=== PATIENT | male | born 1965 | race Caucasian/White ===

== ENCOUNTER 2021-05-01 05:37 | Outpatient (CLI) | payer OTHER ==
[~2021-05-01] VITALS: Ht 185.5 cm; Wt 116.8 kg
[2021-05-01] MEDS ORDERED: HYDR-3820 PO (13:08)
[2021-05-01] MEDS ORDERED: META800T PO (13:08)
[2021-05-01] MEDS ORDERED: RT-ALBUINH IH (13:08)
[2021-05-01] MEDS ORDERED: FLT11013 IH (13:08)
[2021-05-01] MEDS ORDERED: DICL75TA2 PO (13:08)
== END 2021-05-01 14:50 | disposition home or self-care (01) ==
LOC: PREOP 05:37
PROVIDERS: ATTEND Surgery
DX: Z01.818 Encounter for other preprocedural examination (principal)

== ENCOUNTER 2021-05-08 07:00 | Day surgery (SDC) | payer OTHER ==
[~2021-05-08] VITALS: Ht 185.5 cm; Wt 116.8 kg
[2021-05-08] VITALS (7 sets, daily range): BP systolic 105–154; BP diastolic 69–98
[~2021-05-08 07:00] MED LIST: DICL75TA2 PO; FLT11013 IH; HYDR-3820 PO; META800T PO; RT-ALBUINH IH
[2021-05-08] MEDS ORDERED: LACTATED RINGERS 1,000 ML IV STA (07:01)
[2021-05-08] MEDS ORDERED: LACTATED RINGERS 1,000 ML IV ONE (07:07)
[2021-05-08] MEDS ORDERED: MIDAZOLAM 2 MG/2 ML (VERSED) VIAL ONE (07:17)
[2021-05-08] MEDS ORDERED: PROPOFOL INJECTION 50 ML IV ONE (07:17)
--- NOTE | 2021-05-08 08:38 | Progress Note-Post Operative ---
Post-Operative Progess Note Surgeon (s)/Ophthalmic Technician Apprentice (s) Surgeon ROGELIO MERA DO Ophthalmic Technician Apprentice: Justo Pretty, SHAUNII Pre-Operative Diagnosis Screening colon, Family hx of colon CA Post-Operative Diagnosis Polyp diverticula int hemorrhoids Procedure & Operative Findings Date of Procedure 05/08/21 Procedure Performed/Findings Colon with Cold bx PROCEDURE NOTE: After informed consent was obtained, the patient was brought to the endoscopy suite, placed in bed in left lateral decubitus position. He was administered IV sedation by the JOURNEYMAN MACHINIST who then monitored his vitals the entire time, heart rate, blood pressure and pulse ox and the scope was inserted. Pushed all the way to about 140 cm and pushed into the cecum, took a picture of appendiceal orifice and noted the ileo-cecal valve. On the way in noted diverticula and took a picture of them. Started slowly withdrawing the scope insufflating to look circumferentially at the florentino starting in the cecum, up the ascending colon to the hepatic flexure, then down the transverse colon, splenic flexure, into the descending colon down in the sigmoid and then i nto the rectum. Saw small flat polyp and took a picture and then did a cold biopsy of it. In the rectal vault I retroflexed the scope. Took picture of the internal hemorrhoids. The patient tolerated the procedure. He was recovered in endoscopy suite. Anesthesia Type IV sedation by JOURNEYMAN MACHINIST Estimated Blood Loss Estimated blood loss (mL): scant Specimens/Packing Specimens Removed rectal polyp ROGELIO MERA DO May 08, 2021 08:38
--- NOTE | 2021-05-08 08:39 | Endoscopy Discharge Instruct ---
Endo Procedure/Findings Findings 1.: Polyp 2.: Diverticulosis 3.: Internal Hemorrhoids Discharge Instructions - Activity: You might feel a little sleepy until tomorrow. This is due to the medicine you received to relax you. Until tomorrow, you should: NOT drive a car, operate machinery or power tools. NOT drink any alcoholic beverages. NOT make any important decisions or sign importortant papers. Do not return to work until tomorrow, unless otherwise instructed. Resume previous activities tomorrow. Diet: Start by taking liquids. If you tolerate liquids, advance to solid food. 1.: Colonscopy in 5 years Notify Physician - If you experience excessive bleeding, unusual abdominal pain, fever, or chest pain, contact your doctor immediately. ROGELIO MERA DO May 08, 2021 08:39
--- NOTE | 2021-05-08 12:49 | Anesthesia-General Post-Op ---
MAC Patient Condition Mental Status/LOC: Same as Preop Cardiovascular: Satisfactory Nausea/Vomiting: Absent Respiratory: Satisfactory Pain: Controlled Complications: Absent Post Op Complications Complications None Follow Up Care/Instructions Patient Instructions None needed. Anesthesiology Discharge Order Discharge Order Patient is doing well, no complaints, stable vital signs, no apparent adverse anesthesia problems. No complications reported per nursing. LALA FLORES CRNA May 08, 2021 12:49
== END 2021-05-08 09:50 | disposition home or self-care (01) ==
LOC: ENDO 07:00
PROVIDERS: ATTEND Surgery
DX: Z12.11 Encounter for screening for malignant neoplasm of colon (principal); K62.1 Rectal polyp; Z80.0 Family history of malignant neoplasm of digestive organs; K57.90 Diverticulosis of intestine, part unspecified, without perforation or abscess without bleeding; K64.8 Other hemorrhoids; E78.5 Hyperlipidemia, unspecified; Z87.891 Personal history of nicotine dependence; Z79.899 Other long term (current) drug therapy

== ENCOUNTER 2021-12-19 16:15 | Inpatient (IN) | payer OTHER ==
[~2021-12-19] VITALS: Ht 185 cm; Wt 118.2 kg
[~2021-12-19 16:15] MED LIST changes: -AMOX1TAB12 PO; -ASPI-1238 PO; -CATHETER FLUSH 10 ML SYR IV PRN; -CETI10TA17 PO; -FUROSEMIDE 40 MG/4 ML INJ (LASIX) IV STA; -HOLD METFORMIN - RECEIVED CONTRAST 20 ML VIAL IV SCH; -IOHEXOL 350 MG/ML 100 ML (OMNIPAQUE 350) VIAL IV ONE; -LACT1CAP62 PO; -MULT-1061 PO; -NS 100 ML (IVPB) BAG IV ONE; -PANT40TA2 PO; -PANTOPRAZOLE 40 MG (PROTONIX) VIAL IV SCH; -PIPERACILLIN SODIUM/TAZOBACTAM 4.5 GM in NS (IVPB) 100 ML IV SCH; -PROPOFOL DRIP (ICU) 100 ML IV SCH; -ROCURONIUM 10 MG/ML 5 ML SYRINGE IV ONE; -fentaNYL DRIP PRE-MIX 250 ML IV SCH; -fentaNYL INJ 100 MCG/2 ML AMP IV ONE; -fentaNYL INJ 100 MCG/2 ML AMP IVP PRN; -inSUlin ASPART (NovoLOG) 1 UNIT/0.01 ML (CHARGE PER UNIT) SC SCH
[2021-12-19] MEDS ORDERED: PROPOFOL DRIP (ICU) 100 ML IV ONE (16:30)
[2021-12-19] MEDS ORDERED: ONDANSETRON 4 MG (ZOFRAN) ORAL DISSOLVE TAB PO PRN (16:45)
[2021-12-19] MEDS ORDERED: ANTACID SUSP 30 ML UDC (MYLANTA) PO PRN (16:45)
[2021-12-19] MEDS ORDERED: MELATONIN 3 MG TABLET PO PRN (16:45)
[2021-12-19] MEDS ORDERED: ACETAMINOPHEN 325 MG TABLET PO PRN (16:45)
[2021-12-19] MEDS ORDERED: ONDANSETRON 4 MG/2 ML (SDV) Z0FRAN IV PRN (16:45)
[2021-12-19] MEDS ORDERED: diphenhydrAMINE 25 MG TAB (BENADRYL) PO PRN (16:45)
[2021-12-19] MEDS ORDERED: polyethylene glycoL POWDER 17 GM (MIRALAX) PACK PO PRN (16:45)
[2021-12-19 16:46] VITALS: BP 103/67
--- NOTE | 2021-12-19 16:57 | Tele-ICU Consult ---
History of Present Illness History of Present Illness Date Seen by Provider: December 19, 2021 Time Seen by Provider: 16:56 Date of Admission (Tele-ICU Physician , consultation) Available chart/ vitals / labs / Images reviewed H&P is from ER notes Patient's information available about PMH, Shx, Fhx allergy reviewed in EMR. ROS as per chart and RN report Now in ICU, hemodynamically stable Video assessment done using teleICU camera, rest of exam as per RN Discussed with RN. Consultants: Hospital course: 56 y/o male with hypoxic episodes post achilles tendon repair at [facility] , unable to extubate - tranferred to [facility] A/P Acute resp failure , post op, - as per report , No hypoxia during anesthesia or surgery--postop difficulty with weaning to extubation with hypoxia ->> TX for bronchospasm , given epinephrine multiple doses, received 3L NS ( no hypotension reported ) - no aspiration reported by ER ( from report inn Sx center , but possible by CT finding - VO /pulm edema is other considerations ( trop negative , no hypotension - but was given epi - No PE on CT - cont full vent support , lasix given , starting abx - follow -AC 500-18 - 80% peep 10 PAP 22 s/p right Achilles tendon repair Leukocytosis - given very dence infiltrates with bronchogtramm will start empiric abx , sputum cx hyperglycemia - follow with ISS STEPHEN difficulty after anesthesia previously - prolonged time with waking up Mediastinal lymphadenopathy - f/up as oupt as per PCP Lines : pwriph (Central Line Necessity Reviewed) [place]: + OG: + Nutrition: npo Analgesia: fent prn Anxiety/ delirium VTE Prophylaxis: post op , tita if ok with sx Stress Ulcer Prophylaxis: ppi Plans in collaboration with bedside consultants and IM MDs. Discussed with RN to reach out if any questions or concerns A total of 35 minutes of critical care time was devoted to this patient today, required to treat and/or prevent further deterioration of critical care condition ( as above ) . Allergies and Home Medications Allergies Coded Allergies: No Known Drug Allergies (Unverified , 05/08/21) Home Medications Albuterol Sulfate 1 Puff Puff, 2 PUFF IH Q4H, (Reported) 1 PUFF = 90 MCG Diclofenac Sodium 75 Mg Tablet.dr, 75 MG PO DAILY, (Reported) Fluticasone Propionate 1 Ea Aero, 1 EA IH DAILY, (Reported) Hydrocodone/Acetaminophen 1 Each Tablet, 1 EACH PO Q6H PRN for PAIN-MODERATE (5- 7), (Reported) Metaxalone 800 Mg Tablet, 800 MG PO DAILY, (Reported) Past Medical/Social/Family Hx Current Status Primary Language: Tuvaluan Review of Systems Constitutional: see HPI Focused Exam Height, Weight, BMI Height: '" Weight: lbs. oz. kg; 35.00 BMI Method: Exam Exam Patient acknowledged, consented, and participated in this virtual visit which was conducted using real time audio/video Vital Signs Date Time Temp Pulse Resp B/P (MAP) Pulse Ox O2 Delivery O2 Flow Rate FiO2 12/19/21 16:46 35.6 107 88 100 Height & Weight Height: '" Weight: lbs. oz. kg; 35.00 BMI Method: General Appearance: No Apparent Distress Assessment/Plan Assessment/Plan . OLY CORTES MD December 19, 2021 16:57
[2021-12-19] MEDS ORDERED: fentaNYL DRIP PRE-MIX 250 ML IV SCH (17:00)
[2021-12-19] MEDS ORDERED: RT-ALBUTEROL/IPRATROPIUM 3 ML (DUONEB) VIAL INH PRN (17:00)
[2021-12-19] MEDS: PROPOFOL DRIP (ICU) 100 ML IV SCH ×2 (17:13→20:31)
[2021-12-19] MEDS ORDERED: PIPERACILLIN SODIUM/TAZOBACTAM 4.5 GM in NS (IVPB) 100 ML IV ONE (17:15)
--- NOTE | 2021-12-19 18:48 | Progress Note ---
Progress Note Ramón Deleon is a 56 year old male admitted after an Achilles repair surgery with Dr. Seth due to acute hypoxic respiratory failure. He was intubated for the procedure and unable to be extubated afterward. He underwent a CT chest which showed no PE but did show bilateral consolidation concerning for aspiration. He will be admitted to the ICU on the ventilator. He has been started on Zosyn. He was also given a dose of Lasix with concern for volume overload. TeleICU has be en consulted. He had a negative COVID and flu test. Due to myself, the physician, testing positive for COVID, I am unable to see the patient within the 12 hour window recommended for ICU patients. His case was discussed with the other hospitalists, Drs. Flores and Richy, and one of them will assume care. ANNETTE ZARAGOZA MD December 19, 2021 18:48
[2021-12-19] MEDS: ENOXAPARIN 40 MG/0.4 ML (LOVENOX) SYR SQ SCH (19:01)
[2021-12-19 19:13] LABS: ABG BASE EXCESS -4.9 MMOL/L (-2.5-2.5); ABG OXYGEN SATURATION 99 % (94-100); ABG PCO2 41 MMHG (35-45); ABG PO2 212 MMHG (79-93); ABG TCO2 21.5 MMOL/L (21.0-31.0); PATIENT TEMP 36.1; VENTILATOR YES
[2021-12-19 19:16] LABS: ABG PH 7.31 (7.37-7.43)
[2021-12-19] MEDS: RT-ALBUTEROL/IPRATROPIUM 3 ML (DUONEB) VIAL INH SCH ×2 (19:25→22:11)
[2021-12-19 19:26] VITALS: BP 98/72
[2021-12-19 22:12] VITALS: BP 86/57
[2021-12-20] MEDS: PIPERACILLIN SODIUM/TAZOBACTAM 4.5 GM in NS (IVPB) 100 ML IV SCH ×3 (00:18→16:16)
[2021-12-20] MEDS: PROPOFOL DRIP (ICU) 100 ML IV SCH ×3 (00:51→08:39)
[2021-12-20 02:03] VITALS: BP 79/52
[2021-12-20] MEDS: RT-ALBUTEROL/IPRATROPIUM 3 ML (DUONEB) VIAL INH SCH ×6 (02:03→23:00)
[2021-12-20 04:43] LABS: BASOPHILS % (AUTO) 0 % (0-10); EOSINOPHILS % (AUTO) 0 % (0-10); HEMATOCRIT 47 % (40-54); LYMPHOCYTES # (AUTO) 0.7 10^3/uL (1.0-4.0); LYMPHOCYTES % (AUTO) 6 % (12-44); MEAN CORPUSCULAR HEMOGLOBIN 32 pg (25-34); MEAN CORPUSCULAR HGB CONC 34 g/dL (32-36); MEAN CORPUSCULAR VOLUME 93 fL (80-99); MEAN PLATELET VOLUME 10.4 fL (9.0-12.2); MONOCYTES # (AUTO) 0.9 10^3/uL (0.0-1.0); MONOCYTES % (AUTO) 8 % (0-12); NEUTROPHILS # (AUTO) 10.4 10^3/uL (1.8-7.8); NEUTROPHILS % (AUTO) 85 % (42-75); PLATELET COUNT 208 10^3/uL (130-400); WHITE BLOOD COUNT 12.3 10^3/uL (4.3-11.0)
[2021-12-20 05:03] LABS: POTASSIUM 4.5 MMOL/L (3.6-5.0)
[2021-12-20 05:04] LABS: CALCIUM 8.3 MG/DL (8.5-10.1)
[2021-12-20 05:08] LABS: CREATININE SERUM 1.47 MG/DL (0.60-1.30); PHOSPHORUS 4.1 MG/DL (2.3-4.7)
[2021-12-20 05:11] LABS: MAGNESIUM 1.7 MG/DL (1.6-2.4)
[2021-12-20] MEDS ORDERED: MAGNESIUM 1 GM/100 ML IVPB 200 ML IV ONE (05:34)
[2021-12-20 05:39] LABS: ABG BASE EXCESS -4.2 MMOL/L (-2.5-2.5); ABG OXYGEN SATURATION 95 % (94-100); ABG PCO2 38 MMHG (35-45); ABG PH 7.35 (7.37-7.43); ABG PO2 80 MMHG (79-93); ABG TCO2 21.6 MMOL/L (21.0-31.0)
[2021-12-20] MEDS: MAGNESIUM 1 GM/100 ML IVPB 100 ML IV SCH (05:39)
[2021-12-20 05:40] LABS: ALLENS TEST POSITIVE; INSPIRED O2 45%; PATIENT TEMP 36.8; VENTILATOR YES
--- NOTE | 2021-12-20 05:41 | History & Physical-Hospitalist ---
History of Present Illness HPI/Chief Complaint CC: Respiratory failure status post Achilles tendon repair at [facility] in [place] HPI: This is a 56 yr old male. He presented following an Achilles tendon repair at [facility]. He ultimately required intubation. At this current time his PEAK is at 10, FiO2 is 50%. We are proceeding towards extubation. Overall he seems to be stable and improving. Once extubation is successful. We will initiate a regular diet. Source: RN/MD, old records Exam Limitations: clinical condition (Intubated) Date Seen 12/20/21 Time Seen by a Provider: 09:30 Attending Physician Jason Drake DO PCP Admitting Physician: Chloe Tom MD Attending Physician: Chloe Tom MD Referring Physician Date of Admission December 19, 2021 at 16:15 Home Medications & Allergies Home Medications Reviewed patient Home Medication Reconciliation performed by pharmacy medication reconciliations motion study technician and/or nursing. Patients Allergies have been reviewed. Allergies Allergies Coded Allergies No Known Drug Allergies (Rzfmilcmrs18/11/21) Past Zlmigrw-Qnqjjy-Voqfju Hx Patient Social History Tobacco Use?: No Smoking Status: Former Smoker Smokeless type used: Chew Smokeless Tobacco Frequency: Current Everyday User Use of E-Cig and/or Vaping dev: No Substance use?: No Alcohol Use?: Yes Alcohol type: Beer Alcohol Frequency: Couple times a week Pt feels they are or have been: No Immunizations Up To Date Tetanus Booster (TDap): Unknown Hepatitis A: No Hepatitis B: No Seasonal Allergies Seasonal Allergies: No Current Status Advance Directives: No Primary Language: Hong Konger Preferred Spoken Language: Hong Konger Is interpretation needed?: No Sensory deficits: Vision impairment Past Medical History Surgeries: Orthopedic Pneumonia High Cholesterol Traumatic Brain Injury Polyps, Hiatal Hernia Arthritis Blood Disorders: No Adverse Reaction/Blood Tranf: No Family Medical History Colon cancer Review of Systems ROS-Unable to Obtain: Intubated Constitutional: see HPI Physical Exam Physical Exam Vital Signs Vital Signs - First Documented 12/19/21 12/19/21 15:45 16:46 Temp 36.0 Pulse 103 Resp 22 B/P (MAP) 135/96 Pulse Ox 93 O2 Delivery Mechanical Ventilator O2 Flow Rate 80.00 FiO2 100 Capillary Refill : Height, Weight, BMI Height: '" Weight: lbs. oz. kg; 33.92 BMI Method: General Appearance: No Apparent Distress, Chronically ill, Obese, Other (I ntubated) Respiratory: Lungs Clear, Normal Breath Sounds Cardiovascular: Regular Rate, Rhythm Neurologic/Psychiatric: Alert, Oriented x3 Results Results/Procedures Labs Laboratory Tests 12/20/21 04:35 Patient resulted labs reviewed. Assessment/Plan Admission Diagnosis Assessment: Acute respiratory failure following Achilles tendon procedure Obesity BMI 34 Suspect STEPHEN Hypertension Hyperlipidemia Plan: Extubation Supportive care Admission Status: Inpatient Order (span 2 midnights) Reason for Inpatient Admission: Intubation Diagnosis/Problems Diagnosis/Problems (1) Acute respiratory failure with hypoxia HANNAH KENNEDY DO December 20, 2021 05:41
[2021-12-20] MEDS ORDERED: POTASSIUM CL 10MEQ/50ML IVPB 50 ML IV SCH (06:00)
[2021-12-20] MEDS ORDERED: KCL 20 MEQ TAB (K-DUR) PO SCH (06:00)
[2021-12-20] MEDS ORDERED: MAGNESIUM 1 GM/100 ML IVPB 100 ML IV SCH (06:00)
[2021-12-20 07:06] VITALS: BP 79/44
--- NOTE | 2021-12-20 07:37 | Diagnostic Imaging Report ---
Indication: Respiratory failure. COMPARISON: 12/19/2021 FINDINGS: Single frontal radiograph view the chest was obtained and demonstrates indwelling endotracheal tube with tip at the clavicular heads. Gastric tube is also seen with tip in the left upper abdominal quadrant, presumably within the lumen stomach. Cardiac silhouette and pulmonary vasculature are within normal limits. Lungs show somewhat low inspiratory volumes, but are otherwise clear. There is no focal consolidation, large effusion, no pneumothorax. Osseous structures show no gross acute abnormalities. IMPRESSION: 1. Marked overall interval improved aeration. 2. Lines and tubes as above. Dictated by: Dictated on workstation # [id number]
[2021-12-20] MEDS: PANTOPRAZOLE 40 MG (PROTONIX) VIAL IV SCH ×2 (08:40→09:38)
[2021-12-20] MEDS ORDERED: D5 1/2 NS 1000 ML IV SOLUTION 1,000 ML IV SCH (09:00)
[2021-12-20] MEDS ORDERED: DexMEDEtomidine 250 ML DRIP 250 ML IV SCH (09:00)
--- NOTE | 2021-12-20 09:02 | Tele-ICU Progress Note ---
Subjective Date Seen by a Provider: December 20, 2021 Time Seen by a Provider: 09:02 Subjective/Events-last exam (Tele-ICU Physician , Progress Note ) Available chart/ vitals / labs / Images reviewed Video assessment done using teleICU camera, rest of exam as per RN Discussed with RN , EXAM PER RN Events overnight : Afebrile FiO2 - 50% I/O = Drips: Pressors: , hemodynamically stable V E N T Sedation gtt: fent 100 , propofol 50 ( RASS ) VENT SETTINGS and ABG reviewed candidate for SBT today REVIEWED Cardiovascular Stability / Sedation Score / FI02/PEEP / ABG / CXR Consultants: Hospital course: 12/19 56 y/o male with hypoxic episodes post achilles tendon repair at [facility] , unable to extubate - tranferred to hospital 12/20 -AC 500-18 - 50% peep 10 PAP 23 A/P Acute resp failure , post op, - as per report , No hypoxia during anesthesia or surgery--postop difficulty with weaning to extubation with hypoxia ->> TX for bronchospasm , given epinephrine multiple doses, received 3L NS ( no hypotension reported ) - VO /pulm edema is other considerations ( trop negative , no hypotension - but was given epi - No PE on CT -- no aspiration reported by ER ( from report inn Sx center , but possible by CT finding - cont full vent support , lasix given , starting abx - follow -AC 500-18 - 50% peep 10 PAP 23 - WILL ASSESS FOR EXTUBATION, CXR IMPROVED, RESPONDED TO LASIX , ECHO PENDING -ADD PRECEDEX S/p right Achilles tendon repair 12/19 Leukocytosis - given very dence infiltrates with bronchogtramm will start empiric abx , sputum cx JOSE L - mild , monitor , add maintance IVF hyperglycemia - follow with ISS STEPHEN difficulty after anesthesia previously - prolonged time with waking up Mediastinal lymphadenopathy - f/up as oupt as per PCP Lines : pwriph (Central Line Necessity Reviewed) [place]: + OG: + Nutrition: npo Analgesia: fent prn Anxiety/ delirium VTE Prophylaxis: post op , tita if ok with sx Stress Ulcer Prophylaxis: ppi Plans in collaboration with bedside consultants and IM MDs. Discussed with RN to reach out if any questions or concerns A total of 35 minutes of critical care time was devoted to this patient today, required to treat and/or prevent further deterioration of critical care condition ( as above ) . Sepsis Event Evaluation Height, Weight, BMI Height: '" Weight: lbs. oz. kg; 34.53 BMI Method: Exam Exam Patient acknowledged, consented, and participated in this virtual visit which was conducted using real time audio/video Vital Signs Date Time Temp Pulse Resp B/P (MAP) Pulse Ox O2 Delivery O2 Flow Rate FiO2 12/20/21 08:39 101 109/70 12/20/21 08:00 101 17 109/70 91 Mechanical Ventilator 50.00 12/20/21 07:29 36.1 12/20/21 07:06 90 19 91 50 12/20/21 07:00 86 12/20/21 07:00 86 17 86/50 90 Mechanical Ventilator 50.00 12/20/21 06:46 106 18 95 12/20/21 06:15 97 21 87/55 91 12/20/21 06:00 103 33 108/75 92 Mechanical Ventilator 50.00 12/20/21 05:45 96 19 117/68 94 12/20/21 05:30 96 17 103/63 90 12/20/21 05:15 103 33 112/67 92 12/20/21 05:00 96 18 99/67 90 Mechanical Ventilator 50.00 12/20/21 04:45 101 17 107/72 91 12/20/21 04:30 100 110/71 90 12/20/21 04:26 98 113/83 12/20/21 04:15 105 17 113/83 92 12/20/21 04:09 92 Mechanical Ventilator 50 12/20/21 04:00 103 16 114/76 94 Mechanical Ventilator 50.00 12/20/21 03:52 35.7 12/20/21 03:45 90 17 96/62 94 12/20/21 03:30 89 18 82/59 94 12/20/21 03:15 87 18 86/53 93 12/20/21 03:00 87 18 79/54 93 Mechanical Ventilator 50.00 12/20/21 02:45 83 17 72/50 93 12/20/21 02:30 85 17 71/46 92 12/20/21 02:15 86 14 84/57 93 12/20/21 02:03 82 18 92 50 12/20/21 02:00 83 17 79/52 92 Mechanical Ventilator 50.00 12/20/21 01:45 84 17 83/54 92 12/20/21 01:30 85 18 88/58 92 12/20/21 01:15 17 102/62 93 12/20/21 01:00 96 18 108/73 94 Mechanical Ventilator 50.00 12/20/21 01:00 96 12/20/21 00:51 93 101/70 12/20/21 00:45 93 18 101/70 93 12/20/21 00:30 93 18 113/79 92 12/20/21 00:15 98 125/94 94 12/20/21 00:00 92 Mechanical Ventilator 50 12/20/21 00:00 97 141/96 97 Mechanical Ventilator 50.00 12/19/21 23:45 80 17 89/61 93 12/19/21 23:36 36.3 12/19/21 23:30 26 87/62 93 12/19/21 23:15 84 13 91/65 93 12/19/21 23:00 82 18 89/64 93 Mechanical Ventilator 50.00 12/19/21 22:45 86 5 99/68 92 12/19/21 22:30 85 18 86/64 93 12/19/21 22:15 82 18 79/57 93 12/19/21 22:12 83 18 92 50 12/19/21 22:00 84 18 86/57 92 Mechanical Ventilator 50.00 12/19/21 21:45 84 18 90/61 92 12/19/21 21:30 88 18 88/64 93 12/19/21 21:22 92 14 94/69 93 12/19/21 21:15 Mechanical Ventilator 50.00 12/19/21 21:00 89 17 81/55 92 Mechanical Ventilator 50.00 12/19/21 20:45 98 13 105/77 93 12/19/21 20:31 90 98/72 12/19/21 20:30 88 17 91/61 94 12/19/21 20:15 89 18 95/64 93 12/19/21 20:00 93 Mechanical Ventilator 50 12/19/21 20:00 97 13 112/78 94 Mechanical Ventilator 50.00 12/19/21 19:45 92 18 108/75 94 12/19/21 19:37 36.4 12/19/21 19:30 Mechanical Ventilator 50.00 12/19/21 19:30 90 17 97/73 94 12/19/21 19:26 90 18 96 80 12/19/21 19:15 86 18 98/72 95 12/19/21 19:00 85 18 93/74 96 Mechanical Ventilator 80.00 12/19/21 19:00 85 12/19/21 18:45 86 18 92/62 95 Mechanical Ventilator 80.00 12/19/21 18:30 87 14 100/67 96 Mechanical Ventilator 80.00 12/19/21 18:15 90 18 98/75 96 Mechanical Ventilator 80.00 12/19/21 18:00 87 17 93/64 95 Mechanical Ventilator 80.00 12/19/21 17:50 Mechanical Ventilator 80 12/19/21 17:45 93 18 85/62 95 Mechanical Ventilator 80.00 12/19/21 17:30 97 14 85/64 95 Mechanical Ventilator 80.00 12/19/21 17:15 97 11 94/67 95 Mechanical Ventilator 80.00 12/19/21 17:13 107 103/67 12/19/21 17:00 98 17 92/70 97 Mechanical Ventilator 80.00 12/19/21 16:46 35.6 107 88 100 12/19/21 16:45 100 17 92/67 98 Mechanical Ventilator 80.00 12/19/21 16:30 101 17 94/66 95 Mechanical Ventilator 80.00 12/19/21 16:15 102 18 94/69 97 Mechanical Ventilator 80.00 12/19/21 16:00 102 17 94/66 96 Mechanical Ventilator 80.00 12/19/21 15:55 103 23 95/68 99 Mechanical Ventilator 80.00 12/19/21 15:46 107 12/19/21 15:45 36.0 103 22 135/96 93 Mechanical Ventilator 80.00 I & O 12/20/21 06:59 Intake Total 400 ml Output Total 3000 ml Balance -2600 ml Height & Weight Height: '" Weight: lbs. oz. kg; 34.53 BMI Method: General Appearance: No Apparent Distress Results Lab Laboratory Tests 12/20/21 04:35 Assessment/Plan Assessment/Plan 1 OLY CORTES MD December 20, 2021 09:02
[2021-12-20] MEDS ORDERED: LORazepam INJ 2 MG/ML (ATIVAN) VIAL IVP NR (09:04)
[2021-12-20 10:46] VITALS: BP 101/65
[2021-12-20] MEDS ORDERED: HYDROcodone/APAP 5 MG/325 MG (LORTAB) TAB PO PRN (12:30)
[2021-12-20] MEDS ORDERED: LACT1CAP62 PO (14:18)
[2021-12-20] MEDS ORDERED: CETI10TA17 PO (14:18)
[2021-12-20] MEDS ORDERED: DICL75TA2 PO (14:18)
[2021-12-20] MEDS ORDERED: MULT-1061 PO (14:18)
[2021-12-20] MEDS: LACTULOSE SYRUP 10GM/15ML (ENULOSE) 30ML UDC PO SCH ×2 (15:15→21:07)
[2021-12-20] MEDS: polyethylene glycoL POWDER 17 GM (MIRALAX) PACK PO SCH ×2 (15:15→21:07)
[2021-12-20] MEDS: SENNA W/DOCUSATE (SENOKOT S) TABLET PO SCH ×2 (15:15→21:07)
[2021-12-20] MEDS ORDERED: ETODOLAC 300 MG (LODINE) CAP PO PRN (15:30)
[2021-12-20] MEDS ORDERED: LORATADINE (CLARITIN) 10 MG TAB PO PRN (15:30)
[2021-12-20] MEDS ORDERED: HYDROmorphone 2 MG/ML VIAL (DILAUDID) IVP PRN (15:30)
[2021-12-20] MEDS: oxyCODONE/APAP 10/325MG (PERCOCET 10) TABLET PO PRN ×2 (16:20→22:04)
[2021-12-20] MEDS ORDERED: LORazepam INJ 2 MG/ML (ATIVAN) VIAL IVP PRN (17:15)
[2021-12-20] MEDS ORDERED: DIAZEPAM 5 MG (VALIUM) TABLET PO PRN (17:15)
[2021-12-20] MEDS ORDERED: LORazepam INJ 2 MG/ML (ATIVAN) VIAL ONE (17:21)
[2021-12-20] MEDS: ENOXAPARIN 40 MG/0.4 ML (LOVENOX) SYR SQ SCH (17:26)
[2021-12-21] MEDS: PIPERACILLIN SODIUM/TAZOBACTAM 4.5 GM in NS (IVPB) 100 ML IV SCH ×2 (00:25→09:25)
[2021-12-21] MEDS: RT-ALBUTEROL/IPRATROPIUM 3 ML (DUONEB) VIAL INH SCH ×3 (03:33→11:35)
[2021-12-21] MEDS: oxyCODONE/APAP 10/325MG (PERCOCET 10) TABLET PO PRN ×2 (03:46→09:46)
--- NOTE | 2021-12-21 06:30 | Progress Note - Hospitalist ---
Subjective HPI/CC On Admission Date Seen by Provider: December 21, 2021 Time Seen by Provider: 11:00 CC: Respiratory failure status post Achilles tendon repair at [facility] in [place] HPI: This is a 56 yr old male. He presented following an Achilles tendon repair at [facility]. He ultimately required intubation. At this current time his PEAK is at 10, FiO2 is 50%. We are proceeding towards extubation. Overall he seems to be stable and improving. Once extubation is successful. We will initiate a regular diet. Objective Exam Vital Signs Vital Signs Date Time Temp Pulse Resp B/P (MAP) Pulse Ox O2 Delivery O2 Flow Rate FiO2 12/21/21 11:15 37.3 86 18 144/74 93 Room Air 12/20/21 11:21 12/20/21 10:46 30 Capillary Refill : Results/Procedures Lab Laboratory Tests 12/21/21 06:45 Patient resulted labs reviewed. Diagnosis/Problems Diagnosis/Problems (1) Acute respiratory failure with hypoxia HANNAH KENNEDY DO December 21, 2021 06:30
[2021-12-21 06:54] LABS: BASOPHILS % (AUTO) 0 % (0-10); EOSINOPHILS # (AUTO) 0.1 10^3/uL (0.0-0.3); EOSINOPHILS % (AUTO) 1 % (0-10); HEMATOCRIT 40 % (40-54); HEMOGLOBIN 13.6 g/dL (13.3-17.7); LYMPHOCYTES # (AUTO) 1.8 10^3/uL (1.0-4.0); LYMPHOCYTES % (AUTO) 19 % (12-44); MEAN CORPUSCULAR HEMOGLOBIN 32 pg (25-34); MEAN CORPUSCULAR HGB CONC 34 g/dL (32-36); MEAN CORPUSCULAR VOLUME 93 fL (80-99); MEAN PLATELET VOLUME 10.3 fL (9.0-12.2); MONOCYTES # (AUTO) 1.2 10^3/uL (0.0-1.0); MONOCYTES % (AUTO) 13 % (0-12); NEUTROPHILS # (AUTO) 6.3 10^3/uL (1.8-7.8); NEUTROPHILS % (AUTO) 66 % (42-75); PLATELET COUNT 162 10^3/uL (130-400); WHITE BLOOD COUNT 9.6 10^3/uL (4.3-11.0)
[2021-12-21] MEDS ORDERED: MULTIVIT W/MINERALS TAB (THERAGRAN M) PO SCH (07:00)
[2021-12-21 07:14] LABS: ALBUMIN 3.6 GM/DL (3.2-4.5); POTASSIUM 3.9 MMOL/L (3.6-5.0)
[2021-12-21 07:15] LABS: CALCIUM 8.2 MG/DL (8.5-10.1)
[2021-12-21 07:17] LABS: TOTAL PROTEIN 5.8 GM/DL (6.4-8.2)
[2021-12-21 07:18] LABS: BILIRUBIN,TOTAL 0.8 MG/DL (0.1-1.0)
[2021-12-21 07:20] LABS: CREATININE SERUM 0.91 MG/DL (0.60-1.30)
--- NOTE | 2021-12-21 07:30 | Diagnostic Imaging Report ---
EXAMINATION: Chest 1 view HISTORY: Hypoxia. Recent extubation. COMPARISON: 12/20/2021. FINDINGS: Interval extubation and removal of the enteric tube. Lung volumes are low. No focal consolidation or mass. No pleural effusion or pneumothorax. Stable cardiac silhouette. IMPRESSION: 1. Persistent low lung volumes. No focal consolidation. No pleural effusion. 2. Interval extubation and removal of enteric tube. Dictated by: Dictated on workstation # [id number]
--- NOTE | 2021-12-21 08:53 | Physical Therapy Progress Note ---
Therapy Progress Note Patient presented to [facility] secondary to OSH transfer due to respiratory failure during surgery. Patient currently up independently in room NWB to TTWB right LE after achilles tendon repair. Patient and spouse report they will dismiss to home on this date. Patient ambulated in room with FWW x 75' independently. Established equipment FWW, axillary crutches, knee scooter. Total time 5 min. No formal evaluation. 1 visit DINA CASTILLO PT December 21, 2021 08:53
[2021-12-21] MEDS ORDERED: ETODOLAC 300 MG (LODINE) CAP PO SCH (09:00)
[2021-12-21] MEDS ORDERED: LACTOBACILLUS ACIDOPHILUS (PROBIOTIC) CAPSULE PO SCH (09:00)
[2021-12-21] MEDS: PANTOPRAZOLE 40 MG (PROTONIX) VIAL IV SCH ×2 (09:25→09:26)
[2021-12-21] MEDS: SENNA W/DOCUSATE (SENOKOT S) TABLET PO SCH (09:26)
[2021-12-21] MEDS: LACTULOSE SYRUP 10GM/15ML (ENULOSE) 30ML UDC PO SCH (09:26)
[2021-12-21] MEDS: polyethylene glycoL POWDER 17 GM (MIRALAX) PACK PO SCH (09:26)
[2021-12-21] MEDS ORDERED: ASPI-1238 PO (11:16)
[2021-12-21] MEDS ORDERED: PANT40TA2 PO (11:16)
[2021-12-21] MEDS ORDERED: AMOX1TAB12 PO (11:16)
--- NOTE | 2021-12-21 11:18 | Discharge Summary ---
Discharge Summary Hospital Course Was the Problem List Reviewed?: Yes Problems/Dx: (1) Acute respiratory failure with hypoxia Hospital Course Date of Admission: December 19, 2021 at 16:15 Admission Diagnosis : Family Physician/Provider: Jason Drake DO Date of Discharge: 12/21/21 Discharge Diagnosis: Acute hypoxic respiratory failure unable to extubate following surgery, right Achilles tendon repair, untreated STEPHEN Hospital Course: Pt had an uneventful hospital course after he was intubated for surgery at [facility] by Dr. Seth during an Achilles tendon repair. He was unable to be extubated. He was placed on antibiotics empirically for aspiration pneumonitis and he ultimately was extubated in good condition. Lungs remain clear. He has severe sleep apnea of which he is non compliant with CPAP and I suggested he obtain recommendations with that in order to prevent further issues. Labs and Pending Lab Test: Laboratory Tests 12/21/21 06:45: White Blood Count 9.6, Red Blood Count 4.26L, Hemoglobin 13.6, Hematocrit 40, Mean Corpuscular Volume 93, Mean Corpuscular Hemoglobin 32, Mean Corpuscular Hemoglobin Concent 34, Red Cell Distribution Width 12.5, Platelet Count 162, Mean Platelet Volume 10.3, Immature Granulocyte % (Auto) 1, Neutrophils (%) (Auto) 66, Lymphocytes (%) (Auto) 19, Monocytes (%) (Auto) 13H, Eosinophils (%) (Auto) 1, Basophils (%) (Auto) 0, Neutrophils # (Auto) 6.3, Lymphocytes # (Auto) 1.8, Monocytes # (Auto) 1.2H, Eosinophils # (Auto) 0.1, Basophils # (Auto) 0.0, Immature Granulocyte # (Auto) 0.1, Sodium Level 144, Potassium Level 3.9, Chloride Level 111H, Carbon Dioxide Level 22, Anion Gap 11, Blood Urea Nitrogen 16, Creatinine 0.91, Estimat Glomerular Filtration Rate 98, BUN/Creatinine Ratio 18, Glucose Level 91, Calcium Level 8.2L, Corrected Calcium 8.5, Total Bilirubin 0.8, Aspartate Amino Transf (AST/SGOT) 31, Alanine Aminotransferase (ALT/SGPT) 58H, Alkaline Phosphatase 39L, Total Protein 5.8L, Albumin 3.6 Microbiology 12/19/21 Gram Stain, Resulted Pending 12/19/21 Sputum Culture - Preliminary, Resulted Home Meds Active Amox Tr-K Clv 875-125 mg Tab (Amoxicillin/Potassium Clav) 875 Mg-125 Mg Tablet 1 Each PO BID Aspirin EC (Aspirin) 81 Mg Tablet. 81 Mg PO DAILY Protonix (Pantoprazole Sodium) 40 Mg Tablet.dr 40 Mg PO DAILY Reported Cetirizine HCl 10 Mg Tablet 10 Mg PO DAILY PRN Probiotic (Lactobacillus Acidophilus) 10 Billion Cell Capsule 1 Each PO DAILY Centrum Silver Men Tablet (Multivit-Min/FA/Lycopen/Lutein) 300 Mcg-600 Mcg-300 Mcg Tablet 1 Each PO DAILY Diclofenac Sodium 75 Mg Tablet. 75 Mg PO HS PRN Metaxalone 800 Mg Tablet 800 Mg PO TID PRN Hydrocodone-Acetamin 10-325 mg (Hydrocodone/Acetaminophen) 1 Each Tablet 1 Each PO Q6H PRN Diclofenac Sodium 75 Mg Tablet.dr 75 Mg PO DAILY Assessment/Pt Instructions PCP in 1 week Discharge Planning: <30 minutes discharge planning Discharge Instructions Discharge Diet: No Restrictions Activity as Tolerated: Yes Discharge Physical Examination Vital Signs Vital Signs Date Time Temp Pulse Resp B/P (MAP) Pulse Ox O2 Delivery O2 Flow Rate FiO2 12/21/21 11:15 37.3 86 18 144/74 93 Room Air 12/20/21 11:21 12/20/21 10:46 30 General Appearance: No Apparent Distress, WD/WN, Chronically ill Allergies: Coded Allergies: No Known Drug Allergies (Unverified , 05/08/21) Discharge Summary Date of Admission December 19, 2021 at 16:15 Date of Discharge Discharge Date: December 21, 2021 Admission Diagnosis Assessment: Acute respiratory failure following Achilles tendon procedure Obesity BMI 34 Suspect STEPHEN Hypertension Hyperlipidemia Plan: Extubation Supportive care Discharge Diagnosis (1) Acute respiratory failure with hypoxia HANNAH KENNEDY DO December 21, 2021 11:18
== END 2021-12-21 14:21 | disposition home or self-care (01) | DRG 208 ==
LOC: ICU 16:15 → 4TH 12-20 16:36
PROVIDERS: ADMIT Internal Medicine; ATTEND Internal Medicine
PROC: 5A1935Z Respiratory Ventilation, Less than 24 Consecutive Hours (ICD-10-PCS; principal; 2021-12-19)
DX: J95.821 Acute postprocedural respiratory failure (principal); N17.9 Acute kidney failure, unspecified; R09.02 Hypoxemia; E66.9 Obesity, unspecified; Z68.34 Body mass index [BMI] 34.0-34.9, adult; G47.33 Obstructive sleep apnea (adult) (pediatric); I10 Essential (primary) hypertension; D72.829 Elevated white blood cell count, unspecified; R73.9 Hyperglycemia, unspecified; R59.1 Generalized enlarged lymph nodes; Z87.891 Personal history of nicotine dependence; E78.00 Pure hypercholesterolemia, unspecified; Z87.820 Personal history of traumatic brain injury; M19.90 Unspecified osteoarthritis, unspecified site; Z20.822 Contact with and (suspected) exposure to COVID-19
CPT/HCPCS: 36415; 71045; 80048; 80053; 82480; 82805; 82947; 83735; 84100; 85025; 87070; 87205; 93306; 94003; 94640; 94799

== ENCOUNTER → 2021-12-19 | Emergency (ER) | payer OTHER ==
[~2021-12-19] VITALS: Ht 177 cm; Wt 111.0 kg
[~2021-12-19] MED LIST changes: +AMOX1TAB12 PO; +ASPI-1238 PO; +CATHETER FLUSH 10 ML SYR IV PRN; +CETI10TA17 PO; +FUROSEMIDE 40 MG/4 ML INJ (LASIX) IV STA; +HOLD METFORMIN - RECEIVED CONTRAST 20 ML VIAL IV SCH; +IOHEXOL 350 MG/ML 100 ML (OMNIPAQUE 350) VIAL IV ONE; +LACT1CAP62 PO; +MULT-1061 PO; +NS 100 ML (IVPB) BAG IV ONE; +PANT40TA2 PO; +PANTOPRAZOLE 40 MG (PROTONIX) VIAL IV SCH; +PIPERACILLIN SODIUM/TAZOBACTAM 4.5 GM in NS (IVPB) 100 ML IV SCH; +PROPOFOL DRIP (ICU) 100 ML IV SCH; +ROCURONIUM 10 MG/ML 5 ML SYRINGE IV ONE; +fentaNYL DRIP PRE-MIX 250 ML IV SCH; +fentaNYL INJ 100 MCG/2 ML AMP IV ONE; +fentaNYL INJ 100 MCG/2 ML AMP IVP PRN; +inSUlin ASPART (NovoLOG) 1 UNIT/0.01 ML (CHARGE PER UNIT) SC SCH
[2021-12-19 13:34] LABS: BASOPHILS # (AUTO) 0.1 10^3/uL (0.0-0.1); BASOPHILS % (AUTO) 1 % (0-10); EOSINOPHILS # (AUTO) 0.4 10^3/uL (0.0-0.3); EOSINOPHILS % (AUTO) 3 % (0-10); HEMATOCRIT 52 % (40-54); HEMOGLOBIN 16.8 g/dL (13.3-17.7); LYMPHOCYTES # (AUTO) 4.3 10^3/uL (1.0-4.0); LYMPHOCYTES % (AUTO) 27 % (12-44); MEAN CORPUSCULAR HEMOGLOBIN 32 pg (25-34); MEAN CORPUSCULAR HGB CONC 32 g/dL (32-36); MEAN CORPUSCULAR VOLUME 97 fL (80-99); MEAN PLATELET VOLUME 10.2 fL (9.0-12.2); MONOCYTES # (AUTO) 0.9 10^3/uL (0.0-1.0); MONOCYTES % (AUTO) 6 % (0-12); NEUTROPHILS # (AUTO) 9.4 10^3/uL (1.8-7.8); NEUTROPHILS % (AUTO) 59 % (42-75); PLATELET COUNT 260 10^3/uL (130-400); WHITE BLOOD COUNT 15.9 10^3/uL (4.3-11.0)
[2021-12-19 13:45] LABS: ALBUMIN 3.9 GM/DL (3.2-4.5)
[2021-12-19 13:46] LABS: CHLORIDE 109 MMOL/L (98-107); POTASSIUM 3.8 MMOL/L (3.6-5.0); SODIUM 142 MMOL/L (135-145)
[2021-12-19 13:47] LABS: CALCIUM 7.8 MG/DL (8.5-10.1)
[2021-12-19 13:48] LABS: GLUCOSE 260 MG/DL (70-105); TOTAL PROTEIN 6.6 GM/DL (6.4-8.2)
[2021-12-19 13:49] LABS: CARBON DIOXIDE 18 MMOL/L (21-32)
[2021-12-19 13:50] LABS: BILIRUBIN,TOTAL 0.6 MG/DL (0.1-1.0)
[2021-12-19 13:51] LABS: ALKALINE PHOSPHATASE 55 U/L (40-136)
[2021-12-19 13:52] LABS: CREATININE SERUM 1.19 MG/DL (0.60-1.30); GFR ESTIMATED 71
[2021-12-19 13:53] LABS: BUN/CREATININE RATIO 13
[2021-12-19 13:55] LABS: ALANINE AMINOTRANSFERASE 93 U/L (0-55)
--- NOTE | 2021-12-19 14:00 | ED Respiratory ---
General Chief Complaint: Respiratory Problems Stated Complaint: INTUBATED Nursing Triage Note: ARRIVED VIA EMS FROM [facility]ERY [facility] AFTER AN ACHILLES REPAIR. REPORT FROM SUR[facility]ERY [facility] IS THAT THE PT IS HAVING BRONCHOSPASMS WITH INTUBATION. EMS REPORTS PT RECIEVED VERSED 6MG IV WHILE IN THEIR CARE. PT ARRIVED INTUBATED WITH A 7.5 @23CM AT THE LIP. ET BAGGING IN PROGRESS. Source: patient Exam Limitations: no limitations History of Present Illness Date Seen by Provider: December 19, 2021 Time Seen by Provider: 13:12 Initial Comments Arrives via EMS from [facility] for [facility]ics under direction of Dr. COTTO. Patient apparently had right Achilles tendon repair in which he started supine but was turned prone and then back to supine. No hypoxia during anesthesia or surgery. Postsurgical course was complicated by difficulty with weaning to extubation. Apparently he was having possible bronchospasms. He was given epinephrine multiple doses to try to resolve that. He was not hypotensive and only slightly tachycardic in the 110s during this time per QUALITY CONTROL MICROBIOLOGY SUPERVISOR. He would have episodes of hypoxia and then epinephrine would be given and he would get better. EMS was ultimately summoned to transfer here for continuation of care due to difficult postop course after intubation. EMS transported. In route, patient was noted to be darker colored with line of demarcation noted at about the nipple line. He was noted to be desatting into the 60s. This did improve with increased ventilation. He does have ET tube in place which is thought to be a 7.5 at 24 cm at the teeth. Patient does have history of sleep apnea as well as difficulty after anesthesia previously with waking up. No report of illness recently per the . No other significant event occurred during surgery. Timing/Duration: this afternoon Severity: moderate, severe Associated Symptoms: No fever/chills Allergies and Home Medications Allergies Coded Allergies: No Known Drug Allergies (Unverified , 05/08/21) Patient Home Medication List Home Medication List Reviewed: Yes Albuterol Sulfate (Proair Hfa) 1 Puff Puff, 2 PUFF IH Q4H, (Reported) Entered as Reported by: PAM CARTER on 05/01/21 1308 Diclofenac Sodium (Diclofenac Sodium) 75 Mg Tablet.dr 75 MG PO DAILY, (Report ed) Entered as Reported by: PAM CARTER on 05/01/21 1308 Fluticasone Propionate (Flovent Hfa 110 mcg) 1 Ea Aero, 1 EA IH DAILY, (Reported) Entered as Reported by: PAM CARTER on 05/01/21 1308 Hydrocodone/Acetaminophen (Hydrocodone-Acetamin 10-325 mg) 1 Each Tablet, 1 EACH PO Q6H PRN for PAIN-MODERATE (5-7), (Reported) Entered as Reported by: PAM CARTER on 05/01/21 1308 Metaxalone (Metaxalone) 800 Mg Tablet, 800 MG PO DAILY, (Reported) Entered as Reported by: PAM CARTER on 05/01/21 1308 Review of Systems Review of Systems Constitutional: see HPI; No fever Gastrointestinal: vomiting Skin: see HPI, change in color; No lesions Psychiatric/Neurological: Other (Unresponsive) Unable to complete review of systems due to clinical condition and patient is intubated on sedatives and paralytics. Past Fzgmnjy-Bebumq-Bwxnag Hx Patient Social History Tobacco Use?: No Smoking Status: Former Smoker Seasonal Allergies Seasonal Allergies: No Past Medical History Surgeries: Yes (KNEE X2) Orthopedic Respiratory: Yes Pneumonia Cardiac: Yes High Cholesterol Neurological: Yes Traumatic Brain Injury Genitourinary: No Gastrointestinal: Yes Polyps, Hiatal Hernia Musculoskeletal: Yes Arthritis Endocrine: No HEENT: No Cancer: No Psychosocial: No Blood Disorders: No Adverse Reaction/Blood Tranf: No Family Medical History Colon cancer Physical Exam Vital Signs - First Documented 12/19/21 12/19/21 13:12 14:48 Temp 35.6 Pulse 107 Resp 16 B/P (MAP) 103/67 (79) Pulse Ox 88 O2 Delivery Mechanical Ventilator FiO2 100 Capillary Refill : Less Than 3 Seconds Height: '" Weight: lbs. oz. kg; 35.00 BMI Method: General Appearance: WD/WN, no apparent distress HEENT: PERRL/EOMI, pharynx normal Neck: supple, normal inspection Respiratory: crackles (Bilateral throughout), other (Respirations via oyq-ybvce-yece. Does have some spontaneous respirations) Cardiovascular: regular rate, rhythm, no murmur Gastrointestinal: soft, no pulsatile mass Extremities: normal inspection, no pedal edema Neurologic/Psychiatric: alert, oriented x 3 Skin: normal color, warm/dry Progress/Results/Core Measures Suspected Sepsis SIRS Temperature: Pulse: 116 Respiratory Rate: 16 Laboratory Tests 12/19/21 13:17: White Blood Count 15.9H Blood Pressure 113 /73 Mean: 86 Laboratory Tests 12/19/21 13:17: Creatinine 1.19, Platelet Count 260, Total Bilirubin 0.6 Results/Orders Lab Results Laboratory Tests Test 12/19/21 13:17 12/19/21 13:37 12/19/21 14:33 12/19/21 14:48 Range/Units White Blood Count 15.9 H 4.3-11.0 10^3/uL Red Blood Count 5.32 4.30-5.52 10^6/uL Hemoglobin 16.8 13.3-17.7 g/dL Hematocrit 52 40-54 % Mean Corpuscular Volume 97 80-99 fL Mean Corpuscular Hemoglobin 32 25-34 pg Mean Corpuscular Hemoglobin Concent 32 32-36 g/dL Red Cell Distribution Width 12.4 10.0-14.5 % Platelet Count 260 130-400 10^3/uL Mean Platelet Volume 10.2 9.0-12.2 fL Immature Granulocyte % (Auto) 5 % Neutrophils (%) (Auto) 59 42-75 % Lymphocytes (%) (Auto) 27 12-44 % Monocytes (%) (Auto) 6 0-12 % Eosinophils (%) (Auto) 3 0-10 % Basophils (%) (Auto) 1 0-10 % Neutrophils # (Auto) 9.4 H 1.8-7.8 10^3/uL Lymphocytes # (Auto) 4.3 H 1.0-4.0 10^3/uL Monocytes # (Auto) 0.9 0.0-1.0 10^3/uL Eosinophils # (Auto) 0.4 H 0.0-0.3 10^3/uL Basophils # (Auto) 0.1 0.0-0.1 10^3/uL Immature Granulocyte # (Auto) 0.7 H 0.0-0.1 10^3/uL Neutrophils % (Manual) 49 % Lymphocytes % (Manual) 37 % Monocytes % (Manual) 6 % Eosinophils % (Manual) 2 % Basophils % (Manual) 1 % Myelocytes % 1 % Band Neutrophils 4 % Blood Morphology Comment NORMAL Sodium Level 142 135-145 MMOL/L Potassium Level 3.8 3.6-5.0 MMOL/L Chloride Level 109 H 98-107 MMOL/L Carbon Dioxide Level 18 L 21-32 MMOL/L Anion Gap 15 H 5-14 MMOL/L Blood Urea Nitrogen 16 7-18 MG/DL Creatinine 1.19 0.60-1.30 MG/DL Estimat Glomerular Filtration Rate 71 BUN/Creatinine Ratio 13 Glucose Level 260 H 70-105 MG/DL Calcium Level 7.8 L 8.5-10.1 MG/DL Corrected Calcium 7.9 L 8.5-10.1 MG/DL Total Bilirubin 0.6 0.1-1.0 MG/DL Aspartate Amino Transf (AST/SGOT) 54 H 5-34 U/L Alanine Aminotransferase (ALT/SGPT) 93 H 0-55 U/L Alkaline Phosphatase 55 40-136 U/L Troponin I < 0.028 <0.028 NG/ML B-Type Natriuretic Peptide < 10.0 <100.0 PG/ML Total Protein 6.6 6.4-8.2 GM/DL Albumin 3.9 3.2-4.5 GM/DL Triglycerides Level 207 H <150 MG/DL Urine Color YELLOW Urine Clarity CLOUDY Urine pH 6.0 5-9 Urine Specific [employer] >=1.030 1.016-1.022 Urine Protein 3+ H NEGATIVE Urine Glucose (UA) NEGATIVE NEGATIVE Urine Ketones NEGATIVE NEGATIVE Urine Nitrite NEGATIVE NEGATIVE Urine Bilirubin NEGATIVE NEGATIVE Urine Urobilinogen 0.2 < = 1.0 MG/DL Urine Leukocyte Esterase NEGATIVE NEGATIVE Urine RBC (Auto) TRACE-I H NEGATIVE Urine RBC NONE /HPF Urine WBC 0-2 /HPF Urine Squamous Epithelial Cells NONE /HPF Urine Renal Epithelial Cells NONE /HPF Urine Crystals NONE /LPF Urine Bacteria NEGATIVE /HPF Urine Casts PRESENT /LPF Urine Hyaline Casts 2-5 H /LPF Urine Mucus NEGATIVE /LPF Urine Culture Indicated CULTURE PENDING Blood Gas Puncture Site LEFT RADIAL Blood Gas Patient Temperature 35.6 Arterial Blood pH 7.17 *L 7.37-7.43 Arterial Blood Partial Pressure CO2 60 H 35-45 MMHG Arterial Blood Partial Pressure O2 73 L 79-93 MMHG Arterial Blood HCO3 22 L 23-27 MMOL/L Arterial Blood Total CO2 23.5 21.0-31.0 MMOL/L Arterial Blood Oxygen Saturation 91 L 94-100 % Arterial Blood Base Excess -6.0 L -2.5-2.5 MMOL/L Domo Test POSITVE Blood Gas Ventilator Setting YES Blood Gas Inspired Oxygen 100% Influenza Type A (RT-PCR) Not Detected Not Detecte Influenza Type B (RT-PCR) Not Detected Not Detecte SARS-CoV-2 RNA (RT-PCR) Not Detected Not Detecte My Orders Orders - DALE WOEN MD Chest 1 View, Ap/Pa Only (12/19/21 13:25) Arterial Blood Gas (12/19/21 13:25) Bnp Minnie (12/19/21 13:25) Cbc With Automated Diff (12/19/21 13:25) Comprehensive Metabolic Panel (12/19/21 13:25) Troponin I Minnie (12/19/21 13:25) Manual Differential (12/19/21 13:17) Propofol Drip (Icu) (Diprivan Drip (Icu) (12/19/21 13:45) Sedation Communication Q48H (12/19/21 13:38) Triglycerides (12/19/21 13:38) Ct Angio Chest W (12/19/21 13:38) Iohexol Injection (Omnipaque 350 Mg/Ml 1 (12/19/21 14:00) Received Contrast (Hold Metformin- Contr (12/19/21 14:00) Ns (Ivpb) (Sodium Chloride 0.9% Ivpb Bag (12/19/21 14:00) Sodium Chloride Flush (Catheter Flush Sy (12/19/21 14:00) Ekg Tracing (12/19/21 13:48) Furosemide Injection (Lasix Injection) (12/19/21 14:39) Covid 19 Inhouse Test (12/19/21 14:41) Influenza A And B By Pcr (12/19/21 14:41) Sputum Culture (12/19/21 13:40) Urine Culture (12/19/21 13:37) Urinalysis (12/19/21 13:37) Ed Admission (Communication) (12/19/21 14:29) Fentanyl Inj (Sublimaze Injection) (12/19/21 18:43) Rocuronium 5 Ml Syringe (Rocuronium 5 Ml (12/19/21 18:43) Medications Given in ED Current Medications Medications Dose Ordered Sig/Ioana Route Start Time Stop Time Status Last Admin Dose Admin Iohexol 100 ml ONCE ONCE IV 12/19/21 14:00 12/19/21 14:01 DC 12/19/21 14:28 84 ML Sodium Chloride 10 ml NEEDED PRN IV 12/19/21 14:00 12/19/21 16:17 DC 12/19/21 14:28 10 ML Sodium Chloride 100 ml ONCE ONCE IV 12/19/21 14:00 12/19/21 14:01 DC 12/19/21 14:28 80 ML Vital Signs/I&O 12/19/21 12/19/21 12/19/21 12/19/21 13:12 13:55 14:48 15:35 Temp 35.6 Pulse 107 116 106 126 Resp 16 16 16 B/P (MAP) 103/67 (79) 113/73 163/98 Pulse Ox 88 92 93 O2 Delivery Mechanical Ventilator Mechanical Ventilator FiO2 100 12/19/21 16:04 Pulse 101 Resp 21 Pulse Ox 95 FiO2 80 Capillary Refill : Less Than 3 Seconds Blood Pressure Mean: 86 Progress Note : Progress Note Seen and evaluated. IV established by EMS. Versed 5 mg IV by EMS on arrival here. Patient slightly overbreathing vent but not organized and not helpful at this point. Rocuronium 50 mg IV given. We will check labs, x-ray, EKG and get CT chest to rule out PE. Patient has had 3 L of normal saline which is likely enough at this point. Propofol to be initiated. Patient on vent with settings of tidal volume 500, rate 16 and PEEP initially at 7 but increased to 10 and he is on 100% FiO2. We will titrate that as we are able. Patient suctioned. O2 saturations maintaining above 90% now. I did talk with the patient's and e xplained the situation, concerns and current therapy and we will pursue admission when labs and CT are complete. 1429: I did discuss the case with Dr. Tom. Definite concerns for pulmonary edema. He accepts patient for admission, inpatient status to the ICU. 1439: I have discussed the case with the eICU team software developer consultant and reviewed all current findings and concerns. We will give Lasix 40 mg IV. They will evaluate on arrival to the ICU. We have added COVID screening. 1505: I have discussed all findings and concerns with patient's family at bedside. I have increased the rate to 18. PEEP remains at 10 with tidal volume of 500 and FiO2 of 100% with O2 sat at 93 to 94% and end- tidal CO2 at 45. ABG pending. 1521: I did rediscuss the CT findings with rad iology as there was potential concerns for aspiration. This appears to be more edema related especially given history of but we will continue to evaluate. Lasix has been given. Patient is on propofol drip at 60 mcg/kg/min. To be admitted to the ICU. ECG Initial ECG Impression Date: December 19, 2021 Initial ECG Impression Time: 13:59 Initial ECG Rate: 118 Initial ECG Rhythm: S.Tach Initial ECG Comparisson: No Previous ECG Available Comment Sinus tachycardia with normal axis. No evidence of ST elevation WI. Interpreted by me. Diagnostic Imaging Diagonstic Imaging: CT Plain Films/CT/US/NM/MRI: chest Comments [facility] [place], [place] NAME: DARRIAN HALL [facility] REC#: [id number] PT STATUS: REG ER : 1965 PHYSICIAN: DALE OWEN MD ADMIT DATE: 12/19/21/ER Draft Date of Exam:12/19/21 CT ANGIO CHEST W EXAMINATION: CT angiography of the chest. TECHNIQUE: Contrast enhanced thin section helical images were obtained through the chest with intravenous contrast timed for the optimal opacification of the arterial structures per CTA protocol. Post-processing, reconstructions and interpretation of angiographic images of the vessels was performed. 3D MIP reconstructions were performed and reviewed. All CT scans use one or more of the following dose optimizing techniques: automated exposure control, MA and/or KvP adjustment based on a patient size and exam type, or iterative reconstruction. HISTORY: Shortness of breath. COMPARISON: None available. FINDINGS: There is no pulmonary embolism. There is dense consolidation in both lower lobes in the dependent manner concerning for large-volume aspiration. Patient is intubated. No pleural effusion. No pneumothorax. There is no axillary or supraclavicular lymphadenopathy. There is mediastinal lymphadenopathy. Right upper paratracheal lymph node measures 2.0 cm. Gastric tube is present. Heart size is normal. There are no coronary artery calcifications. No pericardial effusion. Aorta is normal in caliber. Limited views of the upper abdomen show hepatic steatosis. There are no suspicious osseous lesions. IMPRESSION: 1. No pulmonary embolism. 2. Extensive dense consolidation dependently in both lower lobes, likely representing large-volume aspiration. 3. Mediastinal lymphadenopathy, follow-up exam in 8 to 12 weeks recommended to ensure stability. Dictated on workstation # [id number] Dict: 12/19/21 1430 Trans: 12/19/21 1436 [id number] [id number] Interpreted by: ULYSSES KHOURY MD Electronically signed by: Reviewed: Reviewed by Me, Discussed w/Radiologist Diagonstic Imaging: Xray Plain Films/CT/US/NM/MRI: chest Comments [facility] [place] [place] NAME: DARRIAN HALL [facility] REC#: [id number] PT STATUS: REG ER : 1965 PHYSICIAN: DALE OWEN MD ADMIT DATE: 12/19/21/ER Draft Date of Exam:12/19/21 CHEST 1 VIEW, AP/PA ONLY INDICATION: Achilles repair with developing bronchospasm. Patient is intubated. TIME OF EXAM: 01:58 p.m. COMPARISON: No prior studies are available for comparison. FINDINGS: Study is significantly limited due to the light technique. There appears to be an ET tube with tip above the janina. There are some bilateral pulmonary infiltrates which could represent pulmonary edema. There is no effusion or pneumothorax. IMPRESSION: Limited study with bilateral infiltrates, suggestive of pulmonary edema. Dictated on workstation # [id number] Dict: 12/19/21 1404 Trans: 12/19/21 1420 [id number] [id number] Interpreted by: YOANDY WYLIE MD Electronically signed by: Reviewed: Reviewed by Me, Discussed w/Radiologist Critical Care Note Critical Care Start Time: 13:12 Stop Time: 15:19 Total Time (minutes) 75 Progress Critical care time excludes separately billable procedures and encompasses evaluation, management, consultation and patient discussions to manage critical illness that may result in serious long-term disability or . See progress note for details. Departure Communication (Admissions) Time/Spoke to Admitting Phy: 14:29 Time/Spoke to Consulting Phy: 14:39 Impression Primary Impression: Acute respiratory failure with hypoxia Disposition: ADMITTED INPATIENT Condition: Critical Admissions Decision to Admit Reason: Admit from ER (General) Decision to Admit/Date: December 19, 2021 Time/Decision to Admit Time: 14:29 Departure-Patient Inst. Referrals: DASHA GARDNER DO (PCP/Family) Primary Care Physician DALE OWEN MD December 19, 2021 14:00
[2021-12-19 14:11] LABS: BAND NEUTROPHILS 4 %; BASOPHILS % (MANUAL) 1 %; EOSINOPHILS % (MANUAL) 2 %; LYMPHOCYTES % (MANUAL) 37 %; MONOCYTES % (MANUAL) 6 %; MYELOCYTES % 1 %; NEUTROPHILS % (MANUAL) 49 %
[2021-12-19 14:12] LABS: RBC MORPH NORMAL
--- NOTE | 2021-12-19 14:21 | Diagnostic Imaging Report ---
INDICATION: Achilles repair with developing bronchospasm. Patient is intubated. TIME OF EXAM: 01:58 p.m. COMPARISON: No prior studies are available for comparison. FINDINGS: Study is significantly limited due to the light technique. There appears to be an ET tube with tip above the janina. There are some bilateral pulmonary infiltrates which could represent pulmonary edema. There is no effusion or pneumothorax. IMPRESSION: Limited study with bilateral infiltrates, suggestive of pulmonary edema. Dictated by: Dictated on workstation # [id number]
--- NOTE | 2021-12-19 14:37 | Diagnostic Imaging Report ---
EXAMINATION: CT angiography of the chest. TECHNIQUE: Contrast enhanced thin section helical images were obtained through the chest with intravenous contrast timed for the optimal opacification of the arterial structures per CTA protocol. Post-processing, reconstructions and interpretation of angiographic images of the vessels was performed. 3D MIP reconstructions were performed and reviewed. All CT scans use one or more of the following dose optimizing techniques: automated exposure control, MA and/or KvP adjustment based on a patient size and exam type, or iterative reconstruction. HISTORY: Shortness of breath. COMPARISON: None available. FINDINGS: There is no pulmonary embolism. There is dense consolidation in both lower lobes in the dependent manner concerning for large-volume aspiration. Patient is intubated. No pleural effusion. No pneumothorax. There is no axillary or supraclavicular lymphadenopathy. There is mediastinal lymphadenopathy. Right upper paratracheal lymph node measures 2.0 cm. Gastric tube is present. Heart size is normal. There are no coronary artery calcifications. No pericardial effusion. Aorta is normal in caliber. Limited views of the upper abdomen show hepatic steatosis. There are no suspicious osseous lesions. IMPRESSION: 1. No pulmonary embolism. 2. Extensive dense consolidation dependently in both lower lobes, likely representing large-volume aspiration. 3. Mediastinal lymphadenopathy, follow-up exam in 8 to 12 weeks recommended to ensure stability. Dictated by: Dictated on workstation # [id number]
[2021-12-19 14:43] LABS: ABG OXYGEN SATURATION 91 % (94-100); ABG PCO2 60 MMHG (35-45); ABG PO2 73 MMHG (79-93); ABG TCO2 23.5 MMOL/L (21.0-31.0)
[2021-12-19 14:48] VITALS: BP 107/78
[2021-12-19 14:55] LABS: ABG PH 7.17 (7.37-7.43)
[2021-12-19 14:56] LABS: ALLENS TEST POSITVE; INSPIRED O2 100%; PATIENT TEMP 35.6; VENTILATOR YES
[2021-12-19 15:55] LABS: BILIRUBIN,URINE NEGATIVE (NEGATIVE); CLARITY,URINE CLOUDY; COLOR,URINE YELLOW; GLUCOSE, URINE (UA) NEGATIVE (NEGATIVE); KETONES,URINE NEGATIVE (NEGATIVE); LEUKOCYTE ESTERASE ,URINE NEGATIVE (NEGATIVE); NITRITE,URINE NEGATIVE (NEGATIVE); PROTEIN,URINE 3+ (NEGATIVE)
[2021-12-19 16:03] LABS: BACTERIA,URINE NEGATIVE /HPF; WBC,URINE 0-2 /HPF
[2021-12-19 16:04] VITALS: BP 94/64
== END | disposition home or self-care (01) ==
LOC: EDUNIT# 13:12 → ER 13:13
DX: J96.01 Acute respiratory failure with hypoxia (principal); Z87.891 Personal history of nicotine dependence; Z20.822 Contact with and (suspected) exposure to COVID-19
CPT/HCPCS: 36415; 51702; 71045; 71275; 80053; 81000; 82805; 83880; 84478; 84484; 85007; 85027; 87070; 87088; 87205; 87636; 93005; 94002; 96365; 96366; 96375; 99291

== ENCOUNTER → 2022-03-12 | Outpatient (CLI) | payer OTHER ==
[~2022-03-12] MED LIST changes: +AMOX1TAB12 PO; +ASPI-1238 PO; +CETI10TA17 PO; +LACT1CAP62 PO; +MULT-1061 PO; +PANT40TA2 PO
--- NOTE | 2022-03-12 16:13 | Diagnostic Imaging Report ---
PROCEDURE: CT right lower extremity without contrast. TECHNIQUE: Axially acquired CT was obtained through the right lower extremity without intravenous contrast. Coronal and sagittal reformations were also performed. Auto Exposure Controls were utilized during the CT exam to meet ALARA standards for radiation dose reduction. INDICATION: Rupture of the Achilles tendon. COMPARISON: None. FINDINGS: No acute fracture is seen in the right ankle. Alignment appears normal. There are mild degenerative changes in the midfoot. There are screws at the posterior calcaneus. Tendons and ligaments are better evaluated by MRI. The central Achilles tendon appears to be torn and retracted proximally by about 6 cm. There is tendinosis of the distal Achilles tendon. The medial and lateral tendon fibers do appear to extend more proximally, by about 3-4 cm. There is a small pocket of fluid along the tendon tract measuring 1.5 x 0.9 cm on axial imaging. No other fluid collections are seen. No muscular atrophy is seen. No soft tissue gas is seen. IMPRESSION: 1. Postsurgical changes from prior Achilles tendon repair with complete, retracted tear of the distal tendon. This may be better evaluated by MRI. Dictated by: Dictated on workstation # [id number]
== END ==
LOC: RAD FS 14:12
PROVIDERS: ATTEND Orthopaedic Surgery
DX: S86.011A Strain of right Achilles tendon, initial encounter (principal); M66.371 Spontaneous rupture of flexor tendons, right ankle and foot; Z98.890 Other specified postprocedural states; X58.XXXA Exposure to other specified factors, initial encounter
CPT/HCPCS: 73700

== ENCOUNTER 2022-03-21 05:30 | Outpatient (CLI) | payer OTHER ==
[~2022-03-21] VITALS: Ht 175.3 cm; Wt 111.5 kg
== END 2022-03-23 11:08 ==
LOC: PREOP 05:30
PROVIDERS: ATTEND Orthopaedic Surgery
DX: Z01.818 Encounter for other preprocedural examination (principal)

== ENCOUNTER → 2022-05-14 | Outpatient (CLI) | payer OTHER ==
[2022-05-14 09:53] LABS: BASOPHILS # (AUTO) 0.1 10^3/uL (0.0-0.1); BASOPHILS % (AUTO) 1 % (0-10); EOSINOPHILS # (AUTO) 0.2 10^3/uL (0.0-0.3); EOSINOPHILS % (AUTO) 3 % (0-10); HEMATOCRIT 45 % (40-54); HEMOGLOBIN 15.8 g/dL (13.3-17.7); LYMPHOCYTES # (AUTO) 1.5 10^3/uL (1.0-4.0); LYMPHOCYTES % (AUTO) 21 % (12-44); MEAN CORPUSCULAR HEMOGLOBIN 32 pg (25-34); MEAN CORPUSCULAR HGB CONC 36 g/dL (32-36); MEAN CORPUSCULAR VOLUME 89 fL (80-99); MEAN PLATELET VOLUME 10.6 fL (9.0-12.2); MONOCYTES # (AUTO) 0.8 10^3/uL (0.0-1.0); MONOCYTES % (AUTO) 11 % (0-12); NEUTROPHILS # (AUTO) 4.3 10^3/uL (1.8-7.8); NEUTROPHILS % (AUTO) 63 % (42-75); PLATELET COUNT 180 10^3/uL (130-400); WHITE BLOOD COUNT 6.9 10^3/uL (4.3-11.0)
[2022-05-14 10:22] LABS: POTASSIUM 4.1 MMOL/L (3.6-5.0)
[2022-05-14 10:23] LABS: ALBUMIN 4.3 GM/DL (3.2-4.5); BILIRUBIN,TOTAL 0.5 MG/DL (0.1-1.0); CALCIUM 8.7 MG/DL (8.5-10.1); CREATININE SERUM 0.8 MG/DL (0.60-1.30); TOTAL PROTEIN 6.6 GM/DL (6.4-8.2)
[2022-05-14 15:18] LABS: VANCOMYCIN,TROUGH 11.2 UG/ML (10.0-20.0)
== END ==
LOC: IHC 09:40
PROVIDERS: ATTEND Internal Medicine Infectious Disease
DX: T81.89XA Other complications of procedures, not elsewhere classified, initial encounter (principal)
CPT/HCPCS: 80053; 80202; 85025

== ENCOUNTER → 2022-05-21 | Outpatient (CLI) | payer OTHER ==
[2022-05-21 10:51] LABS: BASOPHILS # (AUTO) 0.1 10^3/uL (0.0-0.1); BASOPHILS % (AUTO) 1 % (0-10); EOSINOPHILS # (AUTO) 0.2 10^3/uL (0.0-0.3); EOSINOPHILS % (AUTO) 3 % (0-10); HEMATOCRIT 44 % (40-54); HEMOGLOBIN 15.3 g/dL (13.3-17.7); LYMPHOCYTES # (AUTO) 1.5 10^3/uL (1.0-4.0); LYMPHOCYTES % (AUTO) 26 % (12-44); MEAN CORPUSCULAR HEMOGLOBIN 32 pg (25-34); MEAN CORPUSCULAR HGB CONC 35 g/dL (32-36); MEAN CORPUSCULAR VOLUME 92 fL (80-99); MEAN PLATELET VOLUME 10.7 fL (9.0-12.2); MONOCYTES # (AUTO) 0.5 10^3/uL (0.0-1.0); MONOCYTES % (AUTO) 8 % (0-12); NEUTROPHILS # (AUTO) 3.6 10^3/uL (1.8-7.8); NEUTROPHILS % (AUTO) 61 % (42-75); PLATELET COUNT 182 10^3/uL (130-400); WHITE BLOOD COUNT 5.8 10^3/uL (4.3-11.0)
[2022-05-21 11:09] LABS: ALBUMIN 4.3 GM/DL (3.2-4.5); BILIRUBIN,TOTAL 0.7 MG/DL (0.1-1.0); CALCIUM 9.1 MG/DL (8.5-10.1); CREATININE SERUM 0.9 MG/DL (0.60-1.30); POTASSIUM 3.8 MMOL/L (3.6-5.0); TOTAL PROTEIN 6.6 GM/DL (6.4-8.2)
[2022-05-21 14:50] LABS: VANCOMYCIN,TROUGH 15.1 UG/ML (10.0-20.0)
== END ==
LOC: IHC 10:12
PROVIDERS: ATTEND Internal Medicine Infectious Disease
DX: T84.7XXA Infection and inflammatory reaction due to other internal orthopedic prosthetic devices, implants and grafts, initial encounter (principal); M86.9 Osteomyelitis, unspecified
CPT/HCPCS: 80053; 80202; 85025

== ENCOUNTER → 2022-05-28 | Outpatient (CLI) | payer OTHER ==
[~2022-05-28] MED LIST changes: +ALBU8.5H6 IH; -RT-ALBUINH IH
[2022-05-28 11:13] LABS: BASOPHILS % (AUTO) 1 % (0-10); EOSINOPHILS # (AUTO) 0.1 10^3/uL (0.0-0.3); EOSINOPHILS % (AUTO) 3 % (0-10); HEMATOCRIT 42 % (40-54); HEMOGLOBIN 14.6 g/dL (13.3-17.7); LYMPHOCYTES # (AUTO) 0.6 10^3/uL (1.0-4.0); LYMPHOCYTES % (AUTO) 21 % (12-44); MEAN CORPUSCULAR HEMOGLOBIN 32 pg (25-34); MEAN CORPUSCULAR HGB CONC 35 g/dL (32-36); MEAN CORPUSCULAR VOLUME 89 fL (80-99); MEAN PLATELET VOLUME 11.2 fL (9.0-12.2); MONOCYTES # (AUTO) 0.7 10^3/uL (0.0-1.0); MONOCYTES % (AUTO) 22 % (0-12); NEUTROPHILS # (AUTO) 1.6 10^3/uL (1.8-7.8); NEUTROPHILS % (AUTO) 53 % (42-75); PLATELET COUNT 171 10^3/uL (130-400)
[2022-05-28 11:40] LABS: BILIRUBIN,TOTAL 0.8 MG/DL (0.1-1.0); CALCIUM 8.9 MG/DL (8.5-10.1); CREATININE SERUM 1.03 MG/DL (0.60-1.30); POTASSIUM 4.1 MMOL/L (3.6-5.0); TOTAL PROTEIN 6.7 GM/DL (6.4-8.2)
[2022-05-28 11:41] LABS: ALBUMIN 4.2 GM/DL (3.2-4.5)
[2022-05-28 12:03] LABS: BAND NEUTROPHILS 3 %; BASOPHILS % (MANUAL) 0 %; EOSINOPHILS % (MANUAL) 6 %; ERYTHROCYTE SEDIMENTATION RATE 13 MM/HR (0-30); LYMPHOCYTES % (MANUAL) 23 %; MONOCYTES % (MANUAL) 17 %; NEUTROPHILS % (MANUAL) 51 %
[2022-05-28 15:05] LABS: VANCOMYCIN,TROUGH 15.2 UG/ML (10.0-20.0)
== END ==
LOC: IHC 10:35
PROVIDERS: ATTEND Internal Medicine Infectious Disease
DX: T84.7XXA Infection and inflammatory reaction due to other internal orthopedic prosthetic devices, implants and grafts, initial encounter (principal)
CPT/HCPCS: 80053; 80202; 85007; 85027; 85652; 87040

== ENCOUNTER → 2022-05-31 | Outpatient (CLI) | payer OTHER ==
[2022-05-31 13:11] LABS: BASOPHILS % (AUTO) 0 % (0-10); EOSINOPHILS # (AUTO) 0.2 10^3/uL (0.0-0.3); EOSINOPHILS % (AUTO) 6 % (0-10); HEMATOCRIT 37 % (40-54); HEMOGLOBIN 13.1 g/dL (13.3-17.7); LYMPHOCYTES # (AUTO) 0.8 10^3/uL (1.0-4.0); LYMPHOCYTES % (AUTO) 31 % (12-44); MEAN CORPUSCULAR HEMOGLOBIN 32 pg (25-34); MEAN CORPUSCULAR HGB CONC 36 g/dL (32-36); MEAN CORPUSCULAR VOLUME 89 fL (80-99); MEAN PLATELET VOLUME 10.1 fL (9.0-12.2); MONOCYTES # (AUTO) 0.4 10^3/uL (0.0-1.0); MONOCYTES % (AUTO) 15 % (0-12); NEUTROPHILS # (AUTO) 1.2 10^3/uL (1.8-7.8); NEUTROPHILS % (AUTO) 46 % (42-75); PLATELET COUNT 151 10^3/uL (130-400); WHITE BLOOD COUNT 2.5 10^3/uL (4.3-11.0)
== END ==
LOC: IHC 12:59
PROVIDERS: ATTEND Internal Medicine Infectious Disease
DX: T84.7XXA Infection and inflammatory reaction due to other internal orthopedic prosthetic devices, implants and grafts, initial encounter (principal); E88.09 Other disorders of plasma-protein metabolism, not elsewhere classified; Z79.2 Long term (current) use of antibiotics
CPT/HCPCS: 85025

== ENCOUNTER → 2022-12-18 | Outpatient (CLI) | payer OTHER ==
--- NOTE | 2022-12-18 08:54 | Diagnostic Imaging Report ---
EXAMINATION: CT chest without contrast (lung screening). TECHNIQUE: Multiple contiguous axial images were obtained through the chest without the use of intravenous contrast according to lung cancer screening protocol. All CT scans use one or more of the following dose optimizing techniques: automated exposure control, MA and/or KvP adjustment based on patient size and exam type or iterative reconstruction. HISTORY: 35 pack year history of smoking. COMPARISON: 12/19/2021 FINDINGS: There is no edema or pneumonia. No pleural effusion. No pneumothorax. No suspicious nodules. There is no axillary or supraclavicular lymphadenopathy. There are unchanged enlarged mediastinal lymph nodes measuring up to 1.6 cm in the left lower paratracheal space. Heart size is normal. There are no coronary artery calcifications. No pericardial effusion. Aorta is normal in caliber. Limited views of the upper abdomen are unremarkable. There are no suspicious osseus lesions. IMPRESSION: 1. No suspicious pulmonary nodules. LUNG-RADS CATEGORY: 1 MODIFIER: None. Dictated by: Dictated on workstation # [id number]
== END ==
LOC: RAD 07:30
PROVIDERS: ATTEND Nurse Practitioner Family
DX: Z87.891 Personal history of nicotine dependence (principal)
CPT/HCPCS: 71271